=== PATIENT | female | born 1980 | race African-American/Black ===

== ENCOUNTER 2018-02-01 02:37 | Emergency (ER) | payer OTHER ==
[~2018-02-01] VITALS: Ht 160 cm; Wt 72.6 kg
--- NOTE | ~2018-02-01 | EKG ---
[address] [address] ELECTROCARDIOGRAM REPORT Name: MING TREJO Room #: [facility] Bud#: [id number] Admission: 02/01/18 Attend Phys: Discharge: 02/01/18 Date of : 78 Report #: [id number] THIS REPORT FOR: //name// [facility] ED Test Date: 2018-02-01 Test Time: 02:44:13 Pat Name: MING TREJO Department: Room: Gender: F Neuropsychiatric Aide: CANDACE : 1980 Requested By: Terry Olivas Order Number: [id number] MD: Evert Marquis Measurements Intervals [place] Rate: 71 P: 52 CO: 167 QRS: 67 QRSD: 96 T: 52 QT: 395 QTc: 430 Interpretive Statements Sinus rhythm Early repolarization No previous ECG available for comparison Electronically Signed On 02-01-2018 8:36:50 CDT by Evert Marquis [email or web address] <ELECTRONICALLY SIGNED> By: Evert Marquis MD, [facility] 02/01/18 [id number] Evert Marquis MD, FACC /EPI
[2018-02-01 03:24] LABS: ABSOLUTE NEUTROPHILS 2.1 thou/uL (1.4-8.2); BASOPHILS 1.7 % (0.0-2.0); EOSINOPHILS 3.3 % (0.0-3.0); HEMATOCRIT 38.2 % (37.0-47.0); HEMOGLOBIN 13.2 gm/dL (12.0-15.0); LYMPHOCYTES 43.1 % (24.0-44.0); MCH 30.9 pg (26.0-34.0); MCHC 34.4 g/dL (28.0-37.0); MCV 89.7 fL (80.0-100.0); MONOCYTES 6.5 % (1.0-8.0); PLATELET COUNT 317 thou/uL (150-400); POLYS 45.4 % (36.0-66.0); RBC 4.26 mil/uL (4.20-5.00); RDW 12.3 % (10.5-14.5); WBC 4.6 thou/uL (4.0-11.0)
[2018-02-01 03:27] LABS: ANION GAP 10 mmol/L (7-16); BUN 9 mg/dL (7-18); CALCIUM 9.5 mg/dL (8.5-10.1); CHLORIDE 104 mmol/L (98-107); CO2 25 mmol/L (21-32); CREATININE 1.2 mg/dL (0.6-1.0); GLUCOSE 89 mg/dL (74-106); POTASSIUM 3.6 mmol/L (3.5-5.1); SODIUM 139 mmol/L (136-145)
[2018-02-01 03:35] LABS: ALBUMIN 4.2 g/dL (3.4-5.0); SGOT 25 U/L (15-37); SGPT 23 U/L (30-65); TOTAL BILIRUBIN 0.5 mg/dL (<0.1-1.0); TOTAL PROTEIN 7.8 g/dL (6.4-8.2); TROPONIN-I < 0.04 ng/mL (<0.06)
[2018-02-01 05:38] VITALS: BP 105/57
== END 2018-02-01 05:39 | disposition home or self-care (01) ==
LOC: ER 02:37
PROVIDERS: Emergency Medicine
DX: R07.9 Chest pain, unspecified (principal)